=== PATIENT | female | born 1995 | race Caucasian/White ===

== ENCOUNTER 2023-03-08 19:02 | Emergency (ER) | payer OTHER ==
[2023-03-08 19:34] LABS: BASOPHILS # (AUTO) 0.1 10^3/uL (0.0-0.1); BASOPHILS % (AUTO) 0.6 %; EOSINOPHILS % (AUTO) 0.2 %; HCT - HEMATOCRIT 37.4 % (37.0-47.0); HGB - HEMOGLOBIN 12.3 g/dL (12.0-16.0); LYMPHOCYTES # (AUTO) 1.5 10^3/uL (1.5-3.5); LYMPHOCYTES % (AUTO) 14.6 %; MEAN CORPUSCULAR HEMOGLOBIN 29.6 pg (27.0-31.0); MEAN CORPUSCULAR HGB CONC 32.9 g/dL (32.0-36.0); MEAN CORPUSCULAR VOLUME 89.9 fL (81.0-99.0); MEAN PLATELET VOLUME 9.8 fL (7.9-10.8); MONOCYTES # (AUTO) 0.4 10^3/uL (0.0-1.0); MONOCYTES % (AUTO) 4.3 %; NEUTROPHILS # (AUTO) 8.1 10^3/uL (1.5-6.6); PLT - PLATELET COUNT 403 10^3/uL (130-450); RED BLOOD COUNT 4.16 10^6/uL (4.20-5.40); RED CELL DISTRIBUTION WIDTH 12.7 % (12.0-15.0); WHITE BLOOD COUNT 10.1 x10^3/uL (4.8-10.8)
[2023-03-08 19:44] LABS: ALBUMIN 4.6 g/dL (3.2-5.5); ALBUMIN/GLOBULIN RATIO 1.4 (1.0-2.2); BILIRUBIN,TOTAL 0.6 mg/dL (0.2-1.0); CALCIUM 9.8 mg/dL (8.5-10.3); CREATININE 0.8 mg/dL (0.4-1.0); POTASSIUM 3.4 mmol/L (3.5-5.0); TOTAL PROTEIN 7.8 g/dL (6.7-8.2)
--- NOTE | 2023-03-08 20:21 | ED Physician Documentation ---
History of Present Illness - Stated complaint Stated Complaint: LT FLANK PX - Chief complaint Chief Complaint: Abd Pain - History obtained from History obtained from: Patient - History of Present Illness Timing: Today Pain level max: 10 Pain level now: 10 - Additonal information Additional information: Patient is a 27-year-old female who presents to the emergency department complaining of pelvic pain and left flank pain. She states she has been having pelvic pain ongoing for several days. She states that she was seen at a walk-in clinic and they recommended an ultrasound but [facility] denied the ultrasound. She states that she has had ovarian cyst in the past. She states that today she has developed worsening pelvic pain and left flank pain. Nothing makes it better. Worse with palpation and movement. She states unable to urinate today as well. No fevers. No chills. Patient states that she has had 2 dermoid cysts in the past that were around 11 cm in size. She states that these were removed via open incision. 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) - Present Medications Home Medications: Ambulatory Orders Medication Instructions Recorded Confirmed No Known Home Medications 03/08/23 03/08/23 - Allergies Allergies/Adverse Reactions: Allergies Allergy/AdvReac Type Severity Reaction Status Date / Time No Known Drug Allergies Allergy Verified 03/08/23 19:18 - Living Situation Living Situation: reports: With family Living Arrangement: reports: At home - Social History Does the pt smoke?: No Does the pt have substance abuse?: No - Family History Family history: reports: Non contributory PD ED PE NORMAL - Vitals Vital signs reviewed: Yes - General General: Alert and oriented X 3, Well developed/nourished, Other (Patient appears uncomfortable) - HEENT HEENT: PERRL, Moist mucous membranes - Neck Neck: Supple, no meningeal sign - Cardiac Cardiac: RRR - Respiratory Respiratory: No respiratory distress, Clear bilaterally - Abdomen Abdomen: Other (Tender to palpation over the suprapubic area. Mild distention.) - Back Back: No CVA TTP, No spinal TTP - Derm Derm: Warm and dry - Extremities Extremities: No edema, No calf tenderness / cord - Neuro Neuro: Alert and oriented X 3 Results - Vitals Vitals: Vital Signs - 24 hr 03/08/23 03/08/23 03/08/23 19:10 19:16 21:16 Temperature 36.9 C 36.9 C Heart Rate 90 90 80 Respiratory 16 16 16 Rate Blood Pressure 127/83 H 127/83 H 110/75 O2 Saturation 98 98 94 03/08/23 03/08/23 21:20 23:00 Temperature Heart Rate 78 75 Respiratory 16 16 Rate Blood Pressure 110/75 119/82 H O2 Saturation 97 98 Oxygen O2 Source Room air - Labs Labs: Laboratory Tests 03/08/23 03/08/23 03/08/23 19:27 19:27 19:27 WBC 10.1 RBC 4.16 L Hgb 12.3 Hct 37.4 MCV 89.9 MCH 29.6 MCHC 32.9 RDW 12.7 Plt Count 403 MPV 9.8 Neut # (Auto) 8.1 H Lymph # (Auto) 1.5 [place] # (Auto) 0.4 Eos # (Auto) 0.0 Baso # (Auto) 0.1 Absolute Nucleated RBC 0.00 Nucleated RBC % 0.0 Sodium 140 Potassium 3.4 L Chloride 104 Carbon Dioxide 26 Anion Gap 10.0 BUN 10 Creatinine 0.8 Estimated GFR (MDRD) 87 L Glucose 101 H Calcium 9.8 Total Bilirubin 0.6 AST 14 ALT 12 Alkaline Phosphatase 56 Total Protein 7.8 Albumin 4.6 Globulin 3.2 Albumin/Globulin Ratio 1.4 Lipase 32 CA 125 Antigen Serum HCG, Qual NEGATIVE Urine Color Urine Clarity Urine pH Ur Specific [place] Urine Protein Urine Glucose (UA) Urine Ketones Urine Occult Blood Urine Nitrite Urine Bilirubin Urine Urobilinogen Ur Leukocyte Esterase Ur Microscopic Review Urine Culture Comments Urine HCG, Qual 03/08/23 03/08/23 03/08/23 19:27 20:30 20:30 WBC RBC Hgb Hct MCV MCH MCHC RDW Plt Count MPV Neut # (Auto) Lymph # (Auto) [place] # (Auto) Eos # (Auto) Baso # (Auto) Absolute Nucleated RBC Nucleated RBC % Sodium Potassium Chloride Carbon Dioxide Anion Gap BUN Creatinine Estimated GFR (MDRD) Glucose Calcium Total Bilirubin AST ALT Alkaline Phosphatase Total Protein Albumin Globulin Albumin/Globulin Ratio Lipase CA 125 Antigen 14.2 Serum HCG, Qual Urine Color YELLOW Urine Clarity CLEAR Urine pH 6.0 Ur Specific [place] 1.010 Urine Protein NEGATIVE Urine Glucose (UA) NEGATIVE Urine Ketones NEGATIVE Urine Occult Blood NEGATIVE Urine Nitrite NEGATIVE Urine Bilirubin NEGATIVE Urine Urobilinogen 0.2 (NORMAL) Ur Leukocyte Esterase NEGATIVE Ur Microscopic Review NOT INDICATED Urine Culture Comments NOT INDICATED Urine HCG, Qual NEGATIVE - Rads (name of study) Pelvic ultrasound Relevant Findings:: Final report received, See rad report CT abdomen pelvis Relevant Findings:: Final report received, See rad report PD Medical Decision Making - ED course Complexity details: reviewed results, re-evaluated patient, considered differential, d/w patient, d/w family, d/w consultant education ED course: 27-year-old female with pelvic pain and suprapubic tenderness. Bedside ultrasound revealed a distended full urinary bladder as well as a large cystic structure posterior to the bladder. A Garner catheter was placed and the bladder was drained. Patient's pain resolved. A CT scan and ultrasound were performed. These show a large cystic structure, approximately 13.4 x 10.6 x 11.4 cm with a calculated volume of approximately 900 cc. The large complex cystic mass is nonspecific but there is concern for possible ovarian neoplasm. CA125 is normal. Dr. Giang, Gynecology on-call evaluated the patient. We were discussing possible surgery here, but the official radiology report states possible neoplasm. Therefore we attempted to transfer the patient to a hospital with gynecology oncology. Dr. Giang spoke with the gynecology on-call at [facility] and [facility] in [place], both recommended discharge home with leg bag, leave the catheter in place and follow-up as an outpatient. Patient is currently asymptomatic and comfortable with this plan. Patient was given a copy of the images on a disc to take with her to any appointments. Dr. Giang will call her tomorrow for official follow-up. Patient counseled regarding signs and symptoms for which I believe and urgent re-evaluation would be necessary. Patient with good understanding of and agreement to plan and is comfortable going home at this time This document was made in part using voice recognition software. While efforts are made to proofread this document, sound alike and grammatical errors may occur. Departure - Departure Disposition: 01 Home, Self Care Clinical Impression: Acute urinary retention Ovarian cyst Qualifiers: Laterality: right Qualified Code(s): N83.201 - Unspecified ovarian cyst, right side Condition: Good Instructions: ED Catheter Care Garner, ED Cyst Ovarian Follow-Up: Aretha Giang MD [Provider Admit Priv/Credential] - CLAUDIA CANTU PA-C [Physician No Access] - Tomorrow Comments: Dr. Giang will call you tomorrow with follow up information. We will leave the Garner catheter in place. Please make sure you are drinking plenty of fluids at home. We also want to make sure you are avoiding any constipation. You may want to start taking a stool softener such as Colace. Please return if you worsen. Your CA125 level is normal, 14.4. Please take a copy of the CT scan/u ltrasound on a disc with you to any appointments. I have also placed the read for these studies below on your discharge paperwork, please take these with you as well. EXAM: [id number] CT/ABPEW ([id number]) PROCEDURE: ABDOMEN/PELVIS W INDICATIONS: pelvic pain CONTRAST: 100mL Omni 300 TECHNIQUE: After the administration of intravenous contrast, 5 mm thick sections acquired f rom the diaphragms to the symphysis. 5 mm thick coronal and sagittal reformats were acquired. For radiation dose reduction, the following was used: automated exposure control, adjustment of mA and/or kV according to patient size. COMPARISON: None. FINDINGS: Image quality: Excellent. Lung bases: Unremarkable. Heart: Heart is normal in size. ABDOMEN: Liver: No mass lesion. Gallbladder: Within normal limits without calcified gallstones. Biliary ducts: No biliary ductal dilatation. Pancreas: Unremarkable. Spleen: Normal in size. Adrenal Glands: No adrenal nodules. Kidneys and Ureters: No hydronephrosis. Stomach and Bowel: Stomach, small bowel loops, and colon are normal in caliber and wall thickness. Peritoneum: No abnormal intraperitoneal fluid. No free air. Ventral Wall: No hernia. Abdominal Nodes: No retroperitoneal or mesenteric adenopathy by size criteria. Vessels: Aorta and inferior vena cava are normal in size. PELVIS: Pelvic Organs: There is a large cyst within the pelvis measuring up to 14.4 x 11.0 cm in transverse dimension by 11.9 cm in cranial caudal dimension. There is an eccentric rind of soft tissue along the right anterior aspect. There are a few thin internal septations. An IUD appears in appropriate position within the uterus. Bladder: There is a Garner catheter within a nondistended urinary bladder. Pelvic Nodes: No enlarged lymph nodes. Miscellaneous: No inguinal hernias. Bones: Visualized osseous structures demonstrate no suspicious lesions. IMPRESSION: 1. Large cystic mass within the pelvis with thin internal septations and a right anterolateral rind of soft tissue. The findings are likely of right ovarian origin and suggestive of a cystic neoplasm such as a serous or mucinous cystoadenoma or cystadenocarcinoma. EXAM: [id number] US/PELLTD ([id number]) PROCEDURE: Pelvic Limited or F/U INDICATIONS: pelvic pain TECHNIQUE: Real-time transabdominal scanning was performed of the pelvic organs, with image documentation. COMPARISON: Concurrent CT of the abdomen and pelvis. FINDINGS: Limited evaluation of the pelvis demonstrates a large complex cyst within the midline measuring approximately 13.4 x 10.6 x 11.4 cm with a calculated volume of 8 45 mL. There are internal septations with areas of irregular thickening. Internal vascularity demonstrated within the septations on Doppler interrogation. IMPRESSION: 1. 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 Forms: Activity restrictions
[2023-03-08 20:36] LABS: BILIRUBIN,URINE NEGATIVE (NEGATIVE); GLUCOSE, URINE (UA) NEGATIVE (NEGATIVE); KETONES,URINE (UA) NEGATIVE (NEGATIVE); LEUKOCYTE ESTERASE, URINE NEGATIVE (NEGATIVE); NITRITE,URINE NEGATIVE (NEGATIVE); OCCULT BLOOD,URINE NEGATIVE (NEGATIVE); PROTEIN,URINE NEGATIVE (NEGATIVE); UROBILINOGEN,URINE 0.2 (NORMAL) E.U./dL (NORMAL)
[2023-03-08 20:37] LABS: CLARITY,URINE CLEAR (CLEAR)
[2023-03-08] MEDS ORDERED: iohexoL-300 100 ML VIAL ONE (20:42)
[2023-03-08] MEDS: HYDROmorphone 1 MG/ML CARPUJECT IVP STA (20:47)
[2023-03-08 20:55] LABS: HCG UR QUAL NEGATIVE
[2023-03-08 21:05] LABS: HCG,QUALITATIVE BLOOD NEGATIVE
[2023-03-08] MEDS: iohexoL-300 100 ML VIAL IVP ONE (21:38)
--- NOTE | 2023-03-08 22:06 | CT Report ---
PROCEDURE: ABDOMEN/PELVIS W INDICATIONS: pelvic pain CONTRAST: 100mL Omni 300 TECHNIQUE: After the administration of intravenous contrast, 5 mm thick sections acquired from the diaphragms to the symphysis. 5 mm thick coronal and sagittal reformats were acquired. For radiation dose reducti on, the following was used: automated exposure control, adjustment of mA and/or kV according to geoff ent size. COMPARISON: None. FINDINGS: Image quality: Excellent. Lung bases: Unremarkable. Heart: Heart is normal in size. ABDOMEN: Liver: No mass lesion. Gallbladder: Within normal limits without calcified gallstones. Biliary ducts: No biliary ductal dilatation. Pancreas: Unremarkable. Spleen: Normal in size. Adrenal Glands: No adrenal nodules. Kidneys and Ureters: No hydronephrosis. Stomach and Bowel: Stomach, small bowel loops, and colon are normal in caliber and wall thickness. Peritoneum: No abnormal intraperitoneal fluid. No free air. Ventral Wall: No hernia. Abdominal Nodes: No retroperitoneal or mesenteric adenopathy by size criteria. Vessels: Aorta and inferior vena cava are normal in size. PELVIS: Pelvic Organs:There is a large cyst within the pelvis measuring up to 14.4 x 11.0 cm in transverse d imension by 11.9 cm in cranial caudal dimension. There is an eccentric rind of soft tissue along the right anterior aspect. There are a few thin internal septations. An IUD appears in appropriate positi on within the uterus. Bladder:There is a Garner catheter within a nondistended urinary bladder. Pelvic Nodes: No enlarged lymph nodes. Miscellaneous: No inguinal hernias. Bones: Visualized osseous structures demonstrate no suspicious lesions. IMPRESSION: 1. Large cystic mass within the pelvis with thin internal septations and a right anterolateral rind o f soft tissue. The findings are likely of right ovarian origin and suggestive of a cystic neoplasm merchant ch as a serous or mucinous cystoadenoma or cystadenocarcinoma. Reviewed by: Neal Stock MD on 03/08/2023 10:05 PM PDT Approved by: Neal Stock MD on 03/08/2023 10:05 PM PDT Station ID: [id number]
--- NOTE | 2023-03-08 22:09 | Ultrasound Report ---
PROCEDURE: Pelvic Limited or F/U INDICATIONS: pelvic pain TECHNIQUE: Real-time transabdominal scanning was performed of the pelvic organs, with image documentation. COMPARISON: Concurrent CT of the abdomen and pelvis. FINDINGS: Limited evaluation of the pelvis demonstrates a large complex cyst within the midline measuring appro ximately 13.4 x 10.6 x 11.4 cm with a calculated volume of 8 45 mL. There are internal septations wit h areas of irregular thickening. Internal vascularity demonstrated within the septations on Doppler i nterrogation. IMPRESSION: 1. 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 Reviewed by: Neal Stock MD on 03/08/2023 10:08 PM PDT Approved by: Neal Stock MD on 03/08/2023 10:08 PM PDT Station ID: [id number]
--- NOTE | 2023-03-08 23:09 | CONSULTATION NOTE ---
Referring Provider Name of Referring Provider:: Rodolfo Consult Date: 03/08/23 Chief Complaint - Chief Complaint Chief Complaint: pelvic/flank pain, urinary retention History of Present Illness - History of Present Illness HPI Comment/Other: Patient is a 27 yo G0 presenting with a 4 week history of pelvic pain and dyspareunia that has been gradually worsening. She has been unable to void today and began having acutely worse pelvic pain with left sided flank pain. Patient has a history of bilateral dermoid cyst removal via laparotomy in 2017 while stationed in [place] through the [employer]. 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 - Substance History Use: Uses substance without health or social issues: NONE Abuse: Recurrent use of substance despite neg consequences: NONE Dependence: Experiences withdrawal or developed tolerances: NONE Meds/Allgy - Home Medications Home Medications: Ambulatory Orders Medication Instructions Recorded Confirmed No Known Home Medications 03/08/23 03/08/23 - Allergies Allergies/Adverse Reactions: Allergies Allergy/AdvReac Type Severity Reaction Status Date / Time No Known Drug Allergies Allergy Verified 03/08/23 19:18 Review of Systems - Constitutional Constitutional: denies: Fatigue - Eyes Eyes: denies: Pain - Cardiovascular Cariovascular: denies: Chest pain - Respiratory Respiratory: denies: SOB at rest - Genitourinary Genitourinary: reports: Other (urinary retention, pelvic and left flank pain) - All Other Systems All Other Systems: reports: Reviewed and negative Exam - Vital Signs Reviewed Vital Signs: Yes Vital Signs: Vital Signs x48h Temp Pulse Resp BP Pulse Ox 03/08/23 21:20 78 16 110/75 97 03/08/23 21:16 80 16 110/75 94 03/08/23 19:16 98.4 F 90 16 127/83 H 98 03/08/23 19:10 98.5 F 90 16 127/83 H 98 - Physical Exam General Appearance: positive: Moderate distress, Other (Patient was tearful and uncomfortable on presentation which resolved after placement of yen catheter) Respiratory: positive: Breath sounds nml Cardiovascular: positive: Regular rate & rhythm Abdomen: positive: Other (tender to palpation, lower abdomen with improvement after placement of yen catheter) Extremities: positive: Non-tender Neurologic/Psychiatric: positive: Oriented x3 Comments/Other: Please see full CT scan report briefly: large cystic mass within the pelvis with thin internal septation and right anterolateral rind of soft tissue. Findings are likely of right ovarian origin and suggestive of cystic neoplasm such as a serous or mucinous cystadenoma or cystadenocarcinoma. US Internal vascularity demonstrated with in the septations on Doppler interrogation Conclusion/Plan - Problem List (1) Ovarian cyst Conclusion/Plan: concern for potential malignancy based on imaging. Discussed transfer to hospital with die turner/oncology available. Plan of care discussed with patient and significant other and all questions answered. Qualifiers: Laterality: right Qualified Code(s): N83.201 - Unspecified ovarian cyst, right side - Lab Results Fish Bones: 03/08/23 19:27 03/08/23 19:27
[2023-03-08] MEDS: SODIUM CHLORIDE 0.9% 1,000 ML IV STA (23:20)
[2023-03-08 23:59] VITALS: BP 96/72
== END 2023-03-08 23:59 | disposition home or self-care (01) ==
LOC: ED 19:02
DX: N83.201 Unspecified ovarian cyst, right side (principal); R33.9 Retention of urine, unspecified
CPT/HCPCS: 36415; 51703; 74177; 76857; 80053; 81003; 81025; 83690; 84703; 85025; 86301; 86304; 96374; 99283; 99284; J1170; Q9967; 81001; 87086

== ENCOUNTER 2023-03-09 13:22 | Emergency (ER) | payer OTHER ==
[2023-03-09 13:33] VITALS: BP 126/81
--- NOTE | 2023-03-09 15:56 | ED Physician Documentation ---
History of Present Illness - Stated complaint Stated Complaint: Cath Placement - Chief complaint Chief Complaint: General - History obtained from History obtained from: Patient - Additonal information Additional information: Patient is a 27-year-old female who presented yesterday with difficulty urinating, found to have a pelvic mass and urinary retention and had a Garner catheter placed. She is presenting for evaluation of feeling that her catheter may not be in the right place as she feels discomfort when she is straining to have a bowel movement. She reports she feels some leakage at times when she is trying to have a bowel movement but otherwise denies that there is leakage from the catheter. There is no blood or cloudiness. She called Dr. Winter who is on- call for gynecology and directed to the emergency department for further evaluation. No fevers. Dr. Giang is in the ER to see another patient and will also stop by to say hi to her. She has coordinated with Cecil joseph for veterinary livestock inspector onc appointment for this patient tomorrow. 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 cyst removal) - Present Medications Home Medications: Ambulatory Orders Medication Instructions Recorded Confirmed No Known Home Medications 03/08/23 03/08/23 - Allergies Allergies/Adverse Reactions: Allergies Allergy/AdvReac Type Severity Reaction Status Date / Time No Known Drug Allergies Allergy Verified 03/09/23 13:33 - Social History Does the pt smoke?: No Does the pt have substance abuse?: No PD ED PE NORMAL - General General: Alert and oriented X 3, No acute distress, Well developed/nourished - HEENT HEENT: Atraumatic, Moist mucous membranes, Pharynx benign - Neck Neck: Supple, no meningeal sign - Cardiac Cardiac: RRR - Respiratory Respiratory: No respiratory distress, Clear bilaterally - Abdomen Abdomen: Normal bowel sounds, Soft, Non distended, Other (Mild suprapubic tenderness to palpation) - Derm Derm: Warm and dry - Neuro Neuro: Normal speech Results - Vitals Vitals: Vital Signs - 24 hr 03/09/23 13:30 Temperature 36.1 C L Heart Rate 88 Respiratory 16 Rate Blood Pressure 126/81 H O2 Saturation 98 Oxygen O2 Source Room air PD Medical Decision Making - ED course Complexity details: re-evaluated patient, d/w patient ED course: Patient is a 27-year-old female presenting for evaluation of issues with her Garner catheter that was placed last night. When nurse went to assess the catheter it just slid out so she placed a new 1 without issue. Patient denies any new concerns. No fever or change in color or appearance to urine to suggest infection. She was seen by gynecology who is evaluating another patient in the ED and saw her last night and has set her up with an outpatient gynecology oncology follow-up appointment for tomorrow.Patient is advised on concerning symptoms to return for. Departure - Departure Disposition: 01 Home, Self Care Clinical Impression: Garner catheter problem Condition: Stable Instructions: ED Catheter Care Garner Comments: Please follow-up with PCP or gynecology for catheter removal. Please follow-up with the appointment Dr. Giang has set you up with at [place] tomorrow. Return to the emergency department at anytime you develop any issues with your catheter or for any new symptoms. Discharge Date/Time: 03/09/23 16:23
== END 2023-03-09 16:23 | disposition home or self-care (01) ==
LOC: ED 13:22
DX: T83.9XXA Unspecified complication of genitourinary prosthetic device, implant and graft, initial encounter (principal)
CPT/HCPCS: 99283